=== PATIENT | female | born 1965 | race African-American/Black ===

== ENCOUNTER 2017-08-30 14:44 | Emergency (ER) | payer MEDICAID ==
[~2017-08-30] VITALS: Ht 167.6 cm; Wt 81.0 kg
[~2017-08-30 14:44] MED LIST: CLONIDINE TD; HYDR25TA PO; OXYC-515 PO; PROM6.25 PO
[2017-08-30 15:50] LABS: CHLORIDE 111 mEq/L (98-107)
[2017-08-30 16:09] LABS: BASOPHILS % 0.7 % (0.0-2.0); EOSINOPHILS % 3.3 % (0.0-5.0); HEMATOCRIT. 41.6 % (36.0-48.0); HEMOGLOBIN. 14.4 g/dL (12.0-16.0); LYMPHOCYTES % 30.2 % (20.0-50.0); MEAN CORPUSCULAR HEMOGLOBIN 29.3 pg (28.0-32.0); MEAN CORPUSCULAR VOLUME 84.8 fL (81.0-99.0); MEAN PLATELET VOLUME 8.9 fl (7.4-10.4); MONOCYTES % 5.8 % (2.0-8.0); PLATELET 207 x1000/uL (130-400); RED CELL DISTRIBUTION WIDTH 16.6 % (11.6-14.6)
[2017-08-30 16:57] VITALS: BP 165/117
[2017-08-30] MEDS ORDERED: MORPHINE SULFATE 4 MG/ML CPJ (NOT FOR IM USE) IV ONE (17:00)
[2017-08-30] MEDS ORDERED: DIPHENHYDRAMINE 50MG/ML VIAL IV ONE (17:00)
== END 2017-08-30 17:21 | disposition home or self-care (01) ==
LOC: ER 14:44
DX: S40.011A Contusion of right shoulder, initial encounter (principal); S60.211A Contusion of right wrist, initial encounter; J32.9 Chronic sinusitis, unspecified; J40 Bronchitis, not specified as acute or chronic; R55 Syncope and collapse; R11.2 Nausea with vomiting, unspecified; I10 Essential (primary) hypertension; F41.9 Anxiety disorder, unspecified; F17.210 Nicotine dependence, cigarettes, uncomplicated; Z88.6 Allergy status to analgesic agent; Z88.0 Allergy status to penicillin; Z88.8 Allergy status to other drugs, medicaments and biological substances; W19.XXXA Unspecified fall, initial encounter; Y93.89 Activity, other specified; Y92.521 Bus station as the place of occurrence of the external cause; Y99.8 Other external cause status
CPT/HCPCS: 36415; 71045; 73030; 73110; 80053; 85025; 93005; 96374; 96375; 99285; 99406; J1200; J2270; Z7610

== ENCOUNTER 2017-09-09 14:23 | Emergency (ER) | payer MEDICAID ==
[~2017-09-09] VITALS: Ht 162.6 cm; Wt 60.0 kg
[2017-09-09 14:25] VITALS: BP 180/42
[2017-09-09] MEDS ORDERED: ONDANSETRON 4MG ODT PO STA (14:49)
[2017-09-09] MEDS ORDERED: ACETAMINOPHEN 325MG TABLET PO STA (14:49)
[2017-09-09 15:25] LABS: CHLORIDE 108 mEq/L (98-107)
[2017-09-09 15:27] LABS: BASOPHILS % 0.7 % (0.0-2.0); EOSINOPHILS % 2.8 % (0.0-5.0); HEMATOCRIT. 40.7 % (36.0-48.0); HEMOGLOBIN. 13.7 g/dL (12.0-16.0); LYMPHOCYTES % 27.3 % (20.0-50.0); MEAN CORPUSCULAR HEMOGLOBIN 29.1 pg (28.0-32.0); MEAN CORPUSCULAR VOLUME 86.3 fL (81.0-99.0); MEAN PLATELET VOLUME 8.5 fl (7.4-10.4); MONOCYTES % 6.7 % (2.0-8.0); NEUTROPHILS % 62.5 % (40.0-76.0); PLATELET 223 x1000/uL (130-400); RED BLOOD CELL COUNT 4.72 mill/uL (4.2-5.4); RED CELL DISTRIBUTION WIDTH 16.6 % (11.6-14.6)
== END 2017-09-09 14:45 | disposition left against medical advice (07) ==
LOC: ER 14:31
DX: R55 Syncope and collapse (principal); I11.9 Hypertensive heart disease without heart failure; F41.9 Anxiety disorder, unspecified; J44.9 Chronic obstructive pulmonary disease, unspecified; Z88.0 Allergy status to penicillin; Z88.6 Allergy status to analgesic agent; Z91.041 Radiographic dye allergy status
CPT/HCPCS: 36415; 80053; 85025; 85610; 93005; 99285; Q0162

== ENCOUNTER 2018-05-06 08:56 | Emergency (ER) | payer MEDICAID ==
[~2018-05-06] VITALS: Ht 170.2 cm; Wt 81.0 kg
[~2018-05-06 08:56] MED LIST changes: -PROM6.25 PO; +PROM6.254 PO
[2018-05-06] MEDS ORDERED: SODIUM CHLORIDE 0.9% 1,000 ML IV ONE (10:14)
[2018-05-06] MEDS ORDERED: PANTOPRAZOLE SODIUM 40 MG/VIAL IV STA (10:14)
[2018-05-06] MEDS ORDERED: LORAZEPAM 2MG/ML CPJ IV ONE (10:15)
[2018-05-06 10:54] LABS: CLARITY URINE CLEAR (CLEAR); COLOR URINE YELLOW (YELLOW); KETONES URINE NEGATIVE (NEGATIVE); LEUKOCYTE ESTERASE URINE NEGATIVE (NEGATIVE); NITRITE URINE NEGATIVE (NEGATIVE); OCCULT BLOOD URINE NEGATIVE (NEGATIVE); PH URINE 6.5 (4.5-8.0); PROTEIN URINE NEGATIVE (NEGATIVE); SPECIFIC GRAVITY URINE 1.037 (1.005-1.030); UROBILINOGEN URINE 0.2 E.U./dL (0.2-1.0)
[2018-05-06 12:03] LABS: BASOPHILS % 0.8 % (0.0-2.0); EOSINOPHILS % 1.7 % (0.0-5.0); HEMATOCRIT. 40.3 % (36.0-48.0); HEMOGLOBIN. 13.7 g/dL (12.0-16.0); LYMPHOCYTES % 20.6 % (20.0-50.0); MEAN CORPUSCULAR HEMOGLOBIN 32.2 pg (28.0-32.0); MEAN CORPUSCULAR VOLUME 94.7 fL (81.0-99.0); MONOCYTES % 5.1 % (2.0-8.0); NEUTROPHILS % 71.8 % (40.0-76.0); RED BLOOD CELL COUNT 4.25 mill/uL (4.2-5.4); RED CELL DISTRIBUTION WIDTH 14.2 % (11.6-14.6)
[2018-05-06 12:08] LABS: CHLORIDE 107 mEq/L (98-107)
[2018-05-06 12:13] LABS: INR 0.9; PROTHROMBIN TIME 9.4 sec (9.1-11.1)
[2018-05-06] MEDS ORDERED: MORPHINE SULFATE 4 MG/ML CPJ (NOT FOR IM USE) IV ONE (12:30)
[2018-05-06 13:27] LABS: MEAN PLATELET VOLUME 9.2 fl (7.4-10.4)
[2018-05-06 13:28] LABS: PLATELET 170 x1000/uL (130-400)
[2018-05-06 14:57] VITALS: BP 167/114
== END 2018-05-06 15:07 | disposition home or self-care (01) ==
LOC: ER 08:56
DX: R10.13 Epigastric pain (principal); M79.671 Pain in right foot; R03.0 Elevated blood-pressure reading, without diagnosis of hypertension; I11.0 Hypertensive heart disease with heart failure; Z88.0 Allergy status to penicillin; Z88.8 Allergy status to other drugs, medicaments and biological substances; Z88.6 Allergy status to analgesic agent
CPT/HCPCS: 36415; 73620; 74176; 80053; 81003; 81025; 83690; 85025; 85610; 93005; 96365; 96375; 99284; C9113; J2060; J2270; J7030

== ENCOUNTER 2019-01-14 13:13 | Inpatient (IN) | payer MEDICAID ==
[~2019-01-14] VITALS: Ht 170.2 cm; Wt 83.9 kg
[2019-01-14] MEDS ORDERED: HYDRALAZINE 20MG/ML VIAL IV ONE (14:15)
[2019-01-14 14:52] LABS: CHLORIDE 111 mEq/L (98-107)
[2019-01-14 14:59] LABS: BASOPHILS % 0.9 % (0.0-2.0); EOSINOPHILS % 4.5 % (0.0-5.0); HEMATOCRIT. 40.1 % (36.0-48.0); HEMOGLOBIN. 13.7 g/dL (12.0-16.0); LYMPHOCYTES % 30.5 % (20.0-50.0); MEAN CORPUSCULAR VOLUME 90.6 fL (81.0-99.0); MEAN PLATELET VOLUME 8.8 fl (7.4-10.4); MONOCYTES % 6.7 % (2.0-8.0); NEUTROPHILS % 57.4 % (40.0-76.0); PLATELET 201 x1000/uL (130-400); RED BLOOD CELL COUNT 4.43 mill/uL (4.2-5.4); RED CELL DISTRIBUTION WIDTH 14.7 % (11.6-14.6)
[2019-01-14] MEDS ORDERED: HYDROXYZINE 10 MG TABLET PO STA (17:06)
[2019-01-14] MEDS ORDERED: OXYCODONE HCL/ACETAMINOPHEN 5/325MG TABLET PO ONE (17:30)
[2019-01-14] MEDS ORDERED: CLONIDINE 0.1MG TABLET PO ONE (19:30)
[2019-01-14 21:57] VITALS: BP 187/119
[2019-01-14] MEDS: NITROGLYCERIN OINT 1GM/INCH UDPKT TD SCH (22:00)
[2019-01-14] MEDS ORDERED: CLONIDINE 0.1MG TABLET PO PRN (22:00)
[2019-01-14 22:03] VITALS: BP 187/119
[2019-01-14] MEDS: DIPHENHYDRAMINE 50MG/ML VIAL IV PRN (22:42)
[2019-01-14] MEDS: MORPHINE SULFATE 2 MG/ML CPJ (NOT FOR IM USE) IV PRN (22:43)
[2019-01-15] VITALS: BP 154/90
[2019-01-15] MEDS ORDERED: CLONIDINE 0.1MG TABLET PO SCH
[2019-01-15] MEDS: DIPHENHYDRAMINE 50MG/ML VIAL IV PRN ×4 (03:13→21:41)
[2019-01-15] MEDS: MORPHINE SULFATE 2 MG/ML CPJ (NOT FOR IM USE) IV PRN ×6 (03:13→23:03)
[2019-01-15 03:22] VITALS: BP 142/85
[2019-01-15] MEDS: NITROGLYCERIN OINT 1GM/INCH UDPKT TD SCH (05:59)
[2019-01-15 08:04] LABS: BASOPHILS % 0.7 % (0.0-2.0); EOSINOPHILS % 4.5 % (0.0-5.0); HEMATOCRIT. 36.9 % (36.0-48.0); HEMOGLOBIN. 12.5 g/dL (12.0-16.0); LYMPHOCYTES % 34.3 % (20.0-50.0); MEAN CORPUSCULAR HEMOGLOBIN 30.8 pg (28.0-32.0); MEAN CORPUSCULAR VOLUME 90.6 fL (81.0-99.0); MEAN PLATELET VOLUME 9.1 fl (7.4-10.4); MONOCYTES % 8.1 % (2.0-8.0); NEUTROPHILS % 52.4 % (40.0-76.0); PLATELET 215 x1000/uL (130-400); RED BLOOD CELL COUNT 4.07 mill/uL (4.2-5.4); RED CELL DISTRIBUTION WIDTH 14.7 % (11.6-14.6)
[2019-01-15] MEDS: METOPROLOL TARTRATE 50MG TABLET PO SCH ×2 (08:43→21:05)
[2019-01-15] MEDS ORDERED: REGADENOSON 0.4 MG/5 ML IV SCH (08:45)
[2019-01-15] MEDS ORDERED: ASPIRIN 325MG EC TABLET PO SCH (09:00)
[2019-01-15] MEDS ORDERED: ASPIRIN 81MG TABLET PO SCH (09:00)
[2019-01-15 09:41] LABS: CHLORIDE 107 mEq/L (98-107)
[2019-01-15 09:52] LABS: LDL CHOLESTEROL 241 mg/dL (5-100)
[2019-01-15 09:55] LABS: HDL CHOLESTEROL 41 mg/dL (40-59)
[2019-01-15] MEDS: AMLODIPINE 5MG TABLET PO SCH ×2 (11:09→21:06)
[2019-01-15] MEDS: ENOXAPARIN 40MG/0.4ML SYR SUBCUT SCH (11:12)
[2019-01-15] MEDS ORDERED: ALPRAZOLAM 0.5 MG TABLET PO PRN (11:15)
[2019-01-15] MEDS ORDERED: LORAZEPAM 2MG/ML CPJ IV SCH (11:15)
[2019-01-15] MEDS ORDERED: DIPHENHYDRAMINE 12.5MG/5ML UDC PO PRN (11:15)
[2019-01-15] MEDS ORDERED: DIPHENHYDRAMINE 25MG CAPSULE PO PRN (11:30)
[2019-01-15 12:00] VITALS: BP 151/90
[2019-01-15] MEDS: OXYCODONE HCL/ACETAMINOPHEN 5/325MG TABLET PO PRN ×2 (13:24→20:39)
[2019-01-15 13:49] LABS: T4 FREE 0.83 ng/dL (0.76-1.46)
[2019-01-15 16:00] VITALS: BP 134/95
[2019-01-15] MEDS: SODIUM CHLORIDE 0.9% 1,000 ML IV SCH (18:01)
[2019-01-15 20:00] VITALS: BP 126/96
[2019-01-15] MEDS ORDERED: HYDROCODONE/ACETAMINOPHEN 5/325MG TABLET PO PRN (20:30)
[2019-01-15] MEDS: PROMETHAZINE HCL 25MG TABLET PO PRN (20:49)
[2019-01-15] MEDS ORDERED: ATORVASTATIN CALCIUM 40MG TABLET PO SCH (21:00)
[2019-01-15] MEDS: IPRATROPIUM/ALBUTEROL 0.5-3(2.5)MG/3ML NEB HHN PRN (21:03)
[2019-01-15] MEDS: PANTOPRAZOLE SODIUM 40 MG/VIAL IV SCH (21:05)
[2019-01-16] VITALS: BP 111/64
[2019-01-16 00:01] LABS: CREATINE KINASE MB FRACTION 1.2 ng/mL (0.5-3.6)
[2019-01-16] MEDS: PROMETHAZINE HCL 25MG TABLET PO PRN (03:58)
[2019-01-16] MEDS: MORPHINE SULFATE 2 MG/ML CPJ (NOT FOR IM USE) IV PRN (03:58)
[2019-01-16 04:00] VITALS: BP 140/98
[2019-01-16] MEDS: DIPHENHYDRAMINE 50MG/ML VIAL IV PRN ×2 (04:23→11:00)
[2019-01-16] MEDS: OXYCODONE HCL/ACETAMINOPHEN 5/325MG TABLET PO PRN (05:11)
[2019-01-16] MEDS: SODIUM CHLORIDE 0.9% 1,000 ML IV SCH ×2 (05:13→08:10)
[2019-01-16] MEDS ORDERED: HYDROMORPHONE HCL/PF 2MG/ML CPJ IV PRN (06:15)
[2019-01-16] MEDS: IPRATROPIUM/ALBUTEROL 0.5-3(2.5)MG/3ML NEB HHN PRN (07:29)
[2019-01-16 08:00] VITALS: BP 135/94
[2019-01-16 08:07] VITALS: BP 135/94
[2019-01-16] MEDS: METOPROLOL TARTRATE 50MG TABLET PO SCH (09:00)
[2019-01-16] MEDS: AMLODIPINE 5MG TABLET PO SCH (09:00)
[2019-01-16] MEDS ORDERED: LORAZEPAM 1MG TABLET PO PRN (10:30)
[2019-01-16] MEDS: ENOXAPARIN 40MG/0.4ML SYR SUBCUT SCH (10:36)
[2019-01-16] MEDS: PANTOPRAZOLE SODIUM 40 MG/VIAL IV SCH (10:36)
[2019-01-16] MEDS ORDERED: LORAZEPAM 2MG/ML CPJ IV PRN (10:45)
== END 2019-01-16 12:00 | disposition left against medical advice (07) | DRG 48 ==
LOC: ER 13:13 → 5WST 17:16 → EDBEDREQ 17:23 → EDBEDREQTM 17:23 → ENRESERV 20:34
PROVIDERS: ADMIT Internal Medicine; ATTEND Internal Medicine
PROC: B548ZZA Ultrasonography of Superior Vena Cava, Guidance (ICD-10-PCS; principal; 2019-01-16)
PROC: 02HV33Z Insertion of Infusion Device into Superior Vena Cava, Percutaneous Approach (ICD-10-PCS; 2019-01-16)
PROC: B5181ZA Fluoroscopy of Superior Vena Cava using Low Osmolar Contrast, Guidance (ICD-10-PCS; 2019-01-16)
DX: G90.8 Other disorders of autonomic nervous system (principal); E87.8 Other disorders of electrolyte and fluid balance, not elsewhere classified; I11.9 Hypertensive heart disease without heart failure; E78.5 Hyperlipidemia, unspecified; F17.210 Nicotine dependence, cigarettes, uncomplicated; F41.9 Anxiety disorder, unspecified; I16.0 Hypertensive urgency; R26.2 Difficulty in walking, not elsewhere classified; J44.9 Chronic obstructive pulmonary disease, unspecified; G89.4 Chronic pain syndrome; K44.9 Diaphragmatic hernia without obstruction or gangrene; Z76.5 Malingerer [conscious simulation]; Z86.73 Personal history of transient ischemic attack (TIA), and cerebral infarction without residual deficits; I25.2 Old myocardial infarction; Z79.1 Long term (current) use of non-steroidal anti-inflammatories (NSAID); Z79.899 Other long term (current) drug therapy; Z87.81 Personal history of (healed) traumatic fracture; Z88.0 Allergy status to penicillin; Z91.041 Radiographic dye allergy status; Z88.6 Allergy status to analgesic agent; Z88.8 Allergy status to other drugs, medicaments and biological substances; Z53.21 Procedure and treatment not carried out due to patient leaving prior to being seen by health care provider
CPT/HCPCS: 36415; 36573; 70551; 71045; 78582; 80048; 80061; 82550; 82553; 82962; 83036; 83880; 84439; 84443; 84484; 93005; 93306; 94640; 94660; 96374; 97162; 99285; A9558; C1725; C9113; J0360; J1170; J1200; J1650; J2060; J2270; J7030; J7620; Q0163; Q0169